=== PATIENT | female | born 1940 | race Caucasian/White ===

== ENCOUNTER 2018-01-18 20:35 | Emergency (ER) | payer SELFPAY ==
[~2018-01-18] VITALS: Ht 165.1 cm; Wt 57.2 kg
--- OUTSIDE RECORDS SUMMARY | 2018-01-18 20:37 | XMS REPORT | Clinical Summary ---
Author Author [facility] Organization [facility] Address Unknown Phone Unavailable Care Team Providers Care Quality Cloth Tester Name Role Phone Hayden Mcmillan DO PCP Allergies No Known Allergies Current Medications Prescription Sig. Disp. Refills Start End Date Status Date estradiol (ESTRACE) 0.01 Insert 2 g into the Active % (0.1 mg/gram) vaginal vagina daily. cream ibandronate (BONIVA) 150 Take 150 mg by mouth Active mg tablet every 30 (thirty) days. Take in AM with glass of water prior to food, don't lie down for 30 minutes. celecoxib (CeleBREX) 200 Take 200 mg by mouth 2 Active MG capsule (two) times a day. lisinopril Take 5 mg by mouth daily. Active (PRINIVIL,ZESTRIL) 5 mg tablet simvastatin (ZOCOR) 20 MG Take 20 mg by mouth Active tablet nightly. polyethylene glycol Take 17 g by mouth daily. Active (MIRALAX) 17 gram packet zolpidem (AMBIEN) 10 mg Take 10 mg by mouth Active tablet nightly as needed for sleep. mouthwashes 15 mL by mucous membrane 480 mL 1 01/17/20 Active solutionIndications: route 3 (three) times a 18 Burning mouth syndrome day. mouthwashes solution 15 mL by mucous membrane 480 mL 1 01/17/2007/28 Discontin route 3 (three) times a 18 18 ued day. 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 Transcribe Physical Therapy Munir Ramirez MD Arthritis of left knee Orders (Primary Dx) 09/19/2017 Hospital Radiology Lucy Gutierrez MD Breast screening Encounter 09/14/2017 Transcribe Access Lucy Gutierrez MD Breast screening (Primary Orders Dx) after 01/17/2017 Social History Tobacco Use Types Packs/Day Years Used Date Former Smoker Smokeless Tobacco: Never Chew Used Alcohol Use Drinks/Week oz/Week Comments No Sex Assigned at Date Recorded Not on file Last Filed Vital Signs Vital Sign Reading Time Taken Blood Pressure 146/73 01/16/2018 9:26 AM CDT Pulse 71 01/16/2018 9:26 AM CDT Temperature - - Respiratory Rate - - Oxygen Saturation - - Inhaled Oxygen - - Concentration Weight 57.2 kg (126 lb) 01/16/2018 9:26 AM CDT Height 165.1 cm (5' 5") 01/16/2018 9:26 AM CDT Body Mass Index 20.97 01/16/2018 9:26 AM CDT Plan of Treatment Health Maintenance Due Date Last Done Comments ZOSTER VACCINE 2001 PNEUMOCOCCAL 2006 POLYSACCHARIDE VACCINE AGE 65 AND OVER PNEUMOCOCCAL-13 2006 INFLUENZA VACCINE 05/09/2018 Results * Mammo Breast Screen Tomosynthesis Bilateral (09/19/2017 2:40 PM) [place] [address] Narrative PROCEDURE: MAMMO BREAST SCREEN TOMOSYNTHESIS BILATERAL Computer aided detection was utilized for the interpretation of the digital bilateral screening mammography with tomosynthesis. COMPARISON: 11/07/2016-07/01/2013 CLINICAL HISTORY: 77-year-old female for screening mammogram.The patient has no current breast complaints. The patient has a history of prior left breast surgical excision for intraductal papilloma. DENSITY: There are scattered areas of fibroglandular density. A scar marker overlies the right breast. There are new post surgical changes in the left breast including postsurgical architectural distortion, compatible with interval left breast surgical excision for intraductal papilloma. There are bilateral vascular calcifications. No significant masses, calcifications, or other findings are seen in either breast. IMPRESSION:No mammographic evidence of malignancy. RECOMMENDATION: Comparison with physical exam and annual screening mammography. BI-RADS 2: BENIGN This facility is accredited by the [employer] for Mammography. A negative x-ray report should not delay biopsy if a dominant or clinically suspicious mass is present.Not all cancers are identified by x-ray. [id number] after 01/17/2017 Insurance Payer Benefit Subscriber ID Type Phone Address Plan / Group [facility] xxxxxxxxx[place] [address]
[2018-01-18] MEDS ORDERED: TRIMETHOPRIM/SULFAMETHOXAZOLE 160-800 MG TAB PO ONE (21:15)
== END 2018-01-18 21:10 | disposition home or self-care (01) ==
LOC: FSED 20:35
DX: R30.0 Dysuria (principal); R31.9 Hematuria, unspecified; Z87.440 Personal history of urinary (tract) infections
CPT/HCPCS: 81003; 99282

== ENCOUNTER 2018-01-21 12:25 | Inpatient (IN) | payer OTHER ==
[~2018-01-21] VITALS: Ht 165.1 cm; Wt 57.2 kg
--- OUTSIDE RECORDS SUMMARY | 2018-01-21 12:29 | XMS REPORT | Continuity of Care Document ---
Author Author [facility] Organization [facility] Address [address] [place] [address] Phone Unavailable Care Team Providers Care Public Works Director Name Role Phone ROSSY SOLITARIO DO PCP Advance Directives No advance directive information available. Problems No problem information available. Medications No medication information available. Social History No social history information available. Hospital Discharge Instructions No hospital discharge instruction information available. Plan of Care Discharge Date 01/18/18 9:10pm Disposition HOME, SELF-CARE Condition at Discharge Stable Instructions/Education Provided Urinary Tract Infection - Women Forms Provided Work/School Excuse Prescriptions See Medication Section Additional Instructions/Education Discussed working diagnosis of urinary tract infection with patient and family. Recommend course of medical therapy with FOLLOW UP MD in 2-3 days for recheck of urinary. Proceed to hospital ER if high fever, worsening back pain, or vomiting. Precautions given. Functional Status No functional status information available. Allergies, Adverse Reactions, Alerts No known allergies. Immunizations No immunization information available. Vital Signs Acute Vital Signs Vital Response Date/Time Height 5 ft 5 in 01/18/2018 8:35pm Weight 126 lb 01/18/2018 8:35pm Body Mass Index 21.0 kg/m^2 01/18/2018 8:35pm Results No relevant diagnostic test, laboratory data and/or discharge summary information available. Procedures No procedure information available. Encounters Encounter Location Arrival/Admit Date Discharge/Depart Date Attending Provider Departed Emergency Room [facility] 01/18/18 8:35pm 9:10pm PRINCESS ALFARO MD
--- OUTSIDE RECORDS SUMMARY | 2018-01-21 12:29 | XMS REPORT | Clinical Summary ---
Author Author [facility] Organization [facility] Address Unknown Phone Unavailable Care Team Providers Care Sizing Machine Tender Name Role Phone Hayden Mcmillan DO PCP [...] MD Breast screening (Primary Orders Dx) after 01/20/2017 Social History Tobacco Use Types Packs/Day Years [...] Bilateral (09/19/2017 2:40 PM) [place] [address] Narrative PROCEDURE: MAMMO BREAST SCREEN TOMOSYNTHESIS BILATERAL [...] BENIGN This facility is accredited by the [employer] for Mammography. A negative x-ray report should not delay biopsy if a dominant or clinically suspicious mass is present.Not all cancers are identified by x-ray. [id number] after 01/20/2017 Insurance Payer Benefit Subscriber ID Type Phone Address Plan / Group [facility] [place] [address]
--- OUTSIDE RECORDS SUMMARY | 2018-01-21 12:31 | XMS REPORT | Clinical Summary ---
Author Author [facility] Organization [facility] Address Unknown Phone Unavailable Care Team Providers Care Cardiovascular Physician Assistant Name Role Phone Hayden Mcmillan DO PCP [...] Bilateral (09/19/2017 2:40 PM) Specimen [place] [address] Narrative PROCEDURE: MAMMO BREAST SCREEN TOMOSYNTHESIS BILATERAL [...] BENIGN This facility is accredited by the [employer] for Mammography. A negative x-ray report should not delay biopsy if a dominant or clinically suspicious mass is present.Not all cancers are identified by x-ray. DWS01 after 01/20/2017 Insurance Payer Benefit Subscriber ID Type Phone Address Plan / Group [facility] xxxxxxxxx[place] [address]
[2018-01-21] MEDS ORDERED: SODIUM CHLORIDE 0.9% 500ML 500 ML IV STA (12:46)
[2018-01-21] MEDS ORDERED: LORAZEPAM 1 MG TAB PO ONE (13:00)
[2018-01-21 13:24] LABS: BASOPHILS % 0.4 % (0.0-1.0); EOSINOPHILS % 0.1 % (0.0-6.0); HEMATOCRIT 38.3 % (34.2-44.1); HEMOGLOBIN 13.1 g/dL (12.0-16.0); LYMPHOCYTES # (AUTO) 1.1 (1.0-3.2); LYMPHOCYTES % 13.9 % (18.0-39.1); MEAN CORPUSCULAR HEMOGLOBIN 30.7 pg (28-32); MEAN CORPUSCULAR HGB CONC 34.2 g/dL (31-35); MEAN CORPUSCULAR VOLUME 89.7 fL (81-99); MONOCYTES # (AUTO) 0.3 (0.2-0.8); MONOCYTES % 4.1 % (4.4-11.3); NEUTROPHILS # (AUTO) 6.3 (2.1-6.9); NEUTROPHILS % 81.2 % (38.7-80.0); PLATELET COUNT 312 x10e3/uL (140-360); RED BLOOD COUNT 4.27 x10e6/uL (3.6-5.1); RED CELL DISTRIBUTION WIDTH 13.3 % (11.7-14.4)
[2018-01-21 13:26] LABS: CLARITY,URINE CLEAR (CLEAR); COLOR,URINE YELLOW (YELLOW); KETONES,URINE NEGATIVE (NEGATIVE); LEUKOCYTE ESTERASE ,URINE NEGATIVE (NEGATIVE); NITRITE,URINE NEGATIVE (NEGATIVE); PROTEIN,URINE DIPSTICK NEGATIVE (NEGATIVE)
[2018-01-21 13:27] LABS: BILIRUBIN,URINE NEGATIVE (NEGATIVE); INR 1.15; PROTHROMBIN TIME 13.8 seconds (11.9-14.5); URINE UROBILINOGEN 1 mg/dL (0.2 - 1)
--- NOTE | 2018-01-21 13:27 | Diagnostic Imaging Report ---
EXAM: XR CHEST 1 VIEW DATE: 01/21/2018 12:51 PM INDICATION: Anxiety COMPARISON: None FINDINGS: Lines and Tubes: None Heart and Mediastinum: No acute findings. Lungs and Pleura: Ill-defined density right lung base has the appearance of rib ending. Bones and Soft Tissues: No acute findings. IMPRESSION: 1. No acute cardiopulmonary findings. Signed by: Dr. Roni Sousa MD on 01/21/2018 1:24 PM
[2018-01-21 13:28] LABS: PARTIAL THROMBOPLASTIN TIME 29.5 seconds (23.8-35.5)
[2018-01-21 13:34] LABS: EPITHELIAL CELLS,URINE MANY /LPF; RBC,URINE 0-5 /HPF (0-5); WBC,URINE (MAN) 0-5 /HPF (0-5)
[2018-01-21 13:36] LABS: ANION GAP 13.7 mmol/L (8-16); BLOOD UREA NITROGEN 11 mg/dL (7-26); BUN/CREATININE RATIO 11 (6-25); CALCIUM 9.5 mg/dL (8.4-10.2); CARBON DIOXIDE 22 mmol/L (22-29); CHLORIDE 100 mmol/L (98-107); CREATINE KINASE 91 IU/L (29-168); CREATININE, SERUM 0.99 mg/dL (0.57-1.11); EST GLOMERULAR FILTRATION RATE 55 ML/MIN (60-); GLUCOSE 175 mg/dL (74-118); POTASSIUM 3.7 mmol/L (3.5-5.1); SODIUM 132 mmol/L (136-145)
[2018-01-21] MEDS ORDERED: SODIUM CHLORIDE 0.9% 50ML 50 ML ONE (13:56)
[2018-01-21] MEDS ORDERED: IOPAMIDOL 370 MG/ML 200 ML INFUS..BTL INJ ONE (13:57)
--- NOTE | 2018-01-21 14:21 | Diagnostic Imaging Report ---
EXAM: CTA Chest WITH contrast / Pulmonary Embolus Study INDICATION: Shortness of breath COMPARISON: None. TECHNIQUE: Angiogram of the chest was obtained using a multidetector helical scanner after administration of IV contrast. Coronal and sagittal reformations were obtained. Reformatted axial MIP images were obtained and reviewed. Pulmonary embolus protocol. IV CONTRAST: 100 mL Isovue-370 COMPLICATIONS: None RADIATION DOSE: Total DLP: 390 mGy*cm Estimated effective dose: (DLP x 0.015 x size factor) mSv CTDIvol has been reviewed. It is below the limits set by the Radiation Protocol Committee (RPC). FINDINGS: Lines and Tubes: None. Lower Neck: Poorly evaluated thyroid hypodensities. Heart and Great Vessels: The aorta and main pulmonary artery measure 37 and 28 mm. respectively. No pericardial effusion. No pulmonary embolus. Lymph Nodes: No suspicious adenopathy. Lungs: There is a 36 x 27 x 42 mm cystic lesion in the medial aspect of the right lower lobe with 26 x 18 mm enhancing mural nodularity inferiorly. Moderate emphysematous changes are present. Superimposed basilar atelectasis. Trachea and central bronchi are unremarkable. Upper abdomen: Limited evaluation. Bones and Soft Tissues: No acute findings. IMPRESSION: 1. No pulmonary embolus. 2. 36 x 27 x 42 mm cystic lesion medial right lower lobe with 26 x 18 mm enhancing mural nodule. 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 3. Moderate emphysematous change. 4. Ectasia ascending aorta. 5. Thyroid hypodensities which could be better evaluated with ultrasound. Signed by: Dr. Roni Sousa MD on 01/21/2018 2:17 PM
[2018-01-21] MEDS ORDERED: SODIUM CHLORIDE 0.9% 250ML 250 ML IV STA (15:23)
[2018-01-21] MEDS ORDERED: ONDANSETRON HCL INJ 2 MG/ML VIAL IV PRN ×2 (15:30→20:45)
[2018-01-21] MEDS ORDERED: MORPHINE SULFATE 2 MG/ML SYR IV PRN (15:30)
[2018-01-21] MEDS ORDERED: LORAZEPAM 1 MG TAB PO PRN (15:30)
[2018-01-21] MEDS ORDERED: SODIUM CHLORIDE FLUSH 10 ML SYR INJ PRN (15:30)
--- OUTSIDE RECORDS SUMMARY | 2018-01-21 16:25 | XMS REPORT | Clinical Summary ---
Author Author [facility] Organization [facility] Address Unknown Phone Unavailable Care Team Providers Care Injection Operator Name Role Phone Hayden Mcmillan DO PCP [...] Bilateral (09/19/2017 2:40 PM) Specimen [place] [address] Narrative PROCEDURE: MAMMO BREAST SCREEN TOMOSYNTHESIS BILATERAL [...] BENIGN This facility is accredited by the [employer] for Mammography. A negative x-ray report should not delay biopsy if a dominant or clinically suspicious mass is present.Not all cancers are identified by x-ray. DWS01 after 01/20/2017 Insurance Payer Benefit Subscriber ID Type Phone Address Plan / Group [facility] [place]xxxxxxxx[place] [address]
--- OUTSIDE RECORDS SUMMARY | 2018-01-21 16:25 | XMS REPORT ---
Author Author [facility] Address Unknown Phone Unavailable Care Team Providers Care Moth Proofer Name Role Phone RAYA BELLA Unavailable Unavailable Problems This patient has no known problems. Allergies, Adverse Reactions, Alerts This patient has no known allergies or adverse reactions. Medications This patient has no known medications. Results Test Description Test Time Test Comments Text Results Atomic Results Result Comments CT CHEST W [address] [address] Patient Name: REGLA MEDEIROS MR #: [id number] : 1940 Age/Sex: 77/F Req #: [id number] Adm Physician: Ordered by: RAYA BELLA MD Report # : [id number] Location: ER Room/Bed: Procedure: [id number] CT/CT CHEST W Exam Date: 01/21/18 Exam Time: 1400 REPORT STATUS: Signed EXAM: CTA Chest WITH contrast / Pulmonary Embolus Study INDICATION: Shortness of breath COMPARISON: None. TECHNIQUE: Angiogram of the chest was obtained using a multidetector helical scanner after administration of IV contrast. Coronal and sagittal reformations were obtained. Reformatted axial MIP images were obtained and reviewed. Pulmonary embolus protocol. IV CONTRAST: 100 mL Isovue- 370 COMPLICATIONS: None RADIATION DOSE: Total DLP: 390 mGy*cm Estimated effective dose: (DLP x 0.015 x size factor) mSv CTDIvol has been reviewed. It is below the limits set by the Radiation Protocol Committee (RPC). FINDINGS: Lines and Tubes: None. Lower Neck: Poorly evaluated thyroid hypodensities. Heart and Great Vessels: The aorta and main pulmonary artery measure 37 and 28 mm. respectively. No pericardial effusion. No pulmonary embolus. Lymph Nodes : No suspicious adenopathy. Lungs: There is a 36 x 27 x 42 mm cystic lesion in the medial aspect of the right lower lobe with 26 x 18 mm enhancing mural nodularity inferiorly. Moderate emphysematous changes are present. Superimposed basilar atelectasis. Trachea and central bronchi are unremarkable. Upper abdomen: Limited evaluation. Bones and Soft Tissues: No acute findings. IMPRESSION: 1. No pulmonary embolus. 2. 36 x 27 x 42 mm cystic lesion medial right lower lobe with 26 x 18 mm enhancing mural nodule. 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 3. Moderate emphysematous change. 4. Ectasia ascending aorta. 5. Thyroid hypodensities which could be better evaluated with ultrasound. Signed by: Dr. Roni Cuellar MD on 01/21/2018 2:17 PM Dictated By: RONI CUELLAR MD [id number] Transcribed By: ANDRES on 01/21/18 1417 COPY TO: RAYA BELLA MD CHEST [facility] [place] [address] Patient Name: REGLA MEDEIROS MR #: [id number] : 1940 Age/Sex: 77/F Req #: [id number] Adm Physician: Ordered by: RAYA BELLA MD Report #: [id number] Location: ER Room/Bed: Procedure: [id number] DX/CHEST SINGLE (PORTABLE) Exam Date: 01/21/18 Exam Time: 1300 REPORT STATUS: Signed EXAM: XR CHEST 1 VIEW DATE: 01/21/2018 12:51 PM INDICATION: Anxiety COMPARISON: None FINDINGS: Lines and Tubes: None Heart and Mediastinum: No acute findings. Lungs and Pleura: Ill-defined density right lung base has the appearance of rib ending. Bones and Soft Tissues: No acute findings. IMPRESSION: 1. No acute cardiopulmonary findings. Signed by: Dr. Roni Cuellar MD on 01/21/2018 1:24 PM Dictated By: RONI CUELLAR MD 1324 Transcribed By: ANDRES on 01/21/18 1324 COPY TO: RAYA BELLA MD
[2018-01-21] MEDS ORDERED: SIMVASTATIN20 MG PO (16:56)
[2018-01-21] MEDS ORDERED: ESTRACE42.5 GM TOP (16:56)
[2018-01-21] MEDS ORDERED: POLYETHYLENE GL17 GM PO (16:56)
[2018-01-21] MEDS ORDERED: ZOLPIDEM TARTRA10 MG PO (16:56)
[2018-01-21] MEDS ORDERED: LISINOPRIL5 MG PO (16:56)
[2018-01-21] MEDS ORDERED: CELEBREX100 MG PO (17:04)
[2018-01-21] MEDS ORDERED: ALENDRONATE SOD70 MG PO (17:04)
[2018-01-21 20:00] VITALS: BP 140/64
[2018-01-21] MEDS ORDERED: ACETAMINOPHEN 325 MG TAB PO PRN (20:45)
[2018-01-21] MEDS ORDERED: HYDRALAZINE HCL 20 MG/ML VIAL IV PRN (20:45)
[2018-01-21] MEDS ORDERED: ALBUTEROL/IPRATROPIUM 3 ML NEB NEB PRN (20:45)
[2018-01-21] MEDS ORDERED: ZOLPIDEM TARTRATE 10 MG TAB PO SCH (21:00)
[2018-01-21] MEDS: SIMVASTATIN 20 MG TAB PO SCH (21:28)
[2018-01-21] MEDS ORDERED: CELECOXIB 100 MG CAP PO ONE (21:45)
[2018-01-22] VITALS (9 sets, daily range): BP systolic 113–139; BP diastolic 56–63
[2018-01-22] MEDS ORDERED: LEVAQUIN500 MG PO (01:41)
--- NOTE | 2018-01-22 03:08 | Consultation ---
DATE OF CONSULTATION: January 21, 2018 PULMONARY MEDICINE CONSULT REFERRING PHYSICIAN: Dr. Corral REASON FOR REFERRAL: Lung mass. HISTORY: Ms. Martinez is a pleasant 77-year-old female with abnormal chest radiography. Patient has had weight loss of 15 pounds over last few months. Her appetite has decreased. She denies hemoptysis. She is having more anxiety over last 2 weeks. She decided to come into the hospital. She had recent treatment for possible UTI. In the hospital, chest x-ray is unremarkable. CT angiography demonstrated 36 x 27 x 42 mm cystic lesion in the lung with adjacent 26 x 18 mm nodular component with contrast enhancement on angiography. At this point, patient is admitted for further treatment. No history of asthma. MILD ALLERGIES. No GERD. No known COPD. Patient is still active with all her ADLs. She still goes to the gymnasium every week. PAST MEDICAL HISTORY: MILD ALLERGIES, mild arthritis, hyperlipidemia, UTIs. MEDICATIONS: Medication list reviewed per electronic record. No breathing medications. ALLERGIES: NO KNOWN DRUG ALLERGIES. SOCIAL HISTORY: No alcohol, no drugs significant. Patient smoked from age 11 to 52, 1.5 packs per day. 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 She grew up her first 17 years in [facility] where they had coal burning stoves. Patient at age 18 and [place], [place], [place], [facility] and has been in [place] since 1995. She has 3 children in the [place] area. FAMILY HISTORY: Noncontributory. REVIEW OF SYSTEMS: GENERAL: No weight changes. OPHTHALMOLOGIC: No icterus. ENT: No dry mouth. LUNGS: No known COPD. CARDIAC: No heart attacks. GI: No constipation. : No blood in urine. NEUROLOGIC: No seizures. DERMATOLOGIC: No rashes. HEMATOLOGIC: No known lupus. OBJECTIVE: VITAL SIGNS: Afebrile, vital signs noted per electronic record. GENERAL: In no acute distress, alert and calm. HEENT: Normocephalic, atraumatic. NECK: Supple. Throat midline. LUNGS: Bilateral air entry, clear. CARDIOVASCULAR: S1, S2. No murmurs, rubs, or gallops. ABDOMEN: Soft, nontender. EXTREMITIES: No clubbing, no cyanosis, there is no edema. INTEGUMENT: No rash, no purpura. LYMPH NODES: No cervical, no supraclavicular lymph nodes. LABS: 136 sodium, 3.7 potassium, BUN 11, creatinine 0.99. White count 8, 38 hematocrit, 312,000 platelets. IMPRESSION AND PLAN: 1. Lung nodule with adjacent cystic lesion, contrast enhancing. Moderate probability of tumor. 2. Former smoker, quit 25 years ago. 3. MILD ALLERGIES. 4. Recent anxiety. 5. Recent weight loss. 6. Hyperlipidemia. 7. Recurrent urinary tract infections. 8. Treat for possible pneumonia. Recommend antibiotics for possibility of infection. Afterwards, patient needs a positron emission tomography scan and perfusion scan. Patient needs pulmonary function tests. If she seems like a great candidate, she should be worked up to go for surgery as she is still strong and fit at this time. Surgical options include classic lobectomy versus sublobar resection. It was recommended as a less favorable approach to do biopsy or just repeat computerized tomography imaging in the future, all of these were viable options that some people do choose. Continue to optimize weight as much as possible and appetite encouragement. Thank you very much, Dr. Corral for allowing me the chance to participate in the care of Ms. Martinez. Do not hesitate to contact me if I can help in any way. Job#: [id number]
[2018-01-22 06:59] LABS: BASOPHILS # (AUTO) 0.1 (0.0-0.1); BASOPHILS % 1.1 % (0.0-1.0); EOSINOPHILS # (AUTO) 0.1 (0.0-0.4); EOSINOPHILS % 1.9 % (0.0-6.0); HEMATOCRIT 39.7 % (34.2-44.1); HEMOGLOBIN 13.1 g/dL (12.0-16.0); LYMPHOCYTES # (AUTO) 1.6 (1.0-3.2); LYMPHOCYTES % 28.8 % (18.0-39.1); MEAN CORPUSCULAR HEMOGLOBIN 30.3 pg (28-32); MEAN CORPUSCULAR VOLUME 91.7 fL (81-99); MONOCYTES # (AUTO) 0.6 (0.2-0.8); MONOCYTES % 9.7 % (4.4-11.3); NEUTROPHILS # (AUTO) 3.3 (2.1-6.9); NEUTROPHILS % 58.1 % (38.7-80.0); PLATELET COUNT 314 x10e3/uL (140-360); RED BLOOD COUNT 4.33 x10e6/uL (3.6-5.1); RED CELL DISTRIBUTION WIDTH 13.5 % (11.7-14.4)
[2018-01-22 07:23] LABS: ANION GAP 11.3 mmol/L (8-16); CALCIUM 9.6 mg/dL (8.4-10.2); CREATININE, SERUM 0.91 mg/dL (0.57-1.11); POTASSIUM 4.3 mmol/L (3.5-5.1)
[2018-01-22] MEDS: LISINOPRIL 10 MG TAB PO SCH (08:11)
[2018-01-22] MEDS ORDERED: CELECOXIB 100 MG CAP PO SCH (09:00)
[2018-01-22] MEDS: FAMOTIDINE 20 MG TAB PO SCH ×2 (09:45→16:57)
[2018-01-22] MEDS: ENOXAPARIN SOD INJ 40 MG/0.4 ML SYR SC SCH (12:21)
[2018-01-22] MEDS ORDERED: LORAZEPAM 1 MG TAB PO PRN ×2 (12:30→16:30)
[2018-01-22] MEDS ORDERED: ZOLPIDEM TARTRATE 10 MG TAB PO PRN (12:45)
--- NOTE | 2018-01-22 13:25 | Progress Note ---
DATE: January 22, 2018 PULMONARY PROGRESS NOTE SUBJECTIVE: Ms. Martinez was seen and examined at bedside. She continues to have slow progress. Remaining with some anxiety, she has a lot of questions regarding her condition. I have discussed with her and even discussed with a person that she calls a friend about condition. The primary doctor decided to call in psychiatry and oncology. REVIEW OF SYSTEMS: No headaches, no rash. OBJECTIVE VITALS: Afebrile, vital signs noted per the chart record. GENERAL: No acute distress, alert and calm. HEENT: Normocephalic, atraumatic. NECK: Supple. Throat midline. LUNGS: Bilateral air entry, a few rare rhonchi, mostly clear. CARDIOVASCULAR: S1, S2. No murmurs, rubs, or gallops. ABDOMEN: Soft, nontender. EXTREMITIES: No clubbing, no cyanosis. There is no edema. INTEGUMENT: No rash, no purpura. IMPRESSION AND PLAN 1. Lung mass, moderate to high suspicion of malignancy. 2. Former smoker, quit 25 years ago. 3. Anxiety. 4. Hyponatremia. At this time we will continue to followup. I offered my recommendations to the patient and to staff. Due to anxiety, psychiatry has been called. As patient is very fit, I continue to encourage expedited outpatient workup to lung cancer resective surgery. The patient is requesting a lot of information and has the right to get the information. However, due to the fact that this is lung cancer workup, there are not really patient-level handouts out there because it is hard to describe in a pleasant way what the patient is expected to get. However, I did leave literature with nursing and asked them to see if the patient really does want that and I provided this medical-grade literature although I feel it is a little bit complex. However, I will notify nursing they can give it to the patient if she insists on getting it as it is her right to get the information. I notified the patient I will discuss how to get her expedited to shortest time to get this surgery done. Job#: [id number] BRENDA
--- NOTE | 2018-01-22 17:21 | Consultation ---
DATE OF CONSULTATION: January 22, 2018 ATTENDING DOCTOR: Dr. Corral. Thank you Dr. Corral for this consultation. She is a very pleasant 77-year-old female with a past medical history which includes generalized anxiety, mild arthritis, hyperlipidemia, UTI currently in hospital with worsening chest pain, weight loss, fatigue and tiredness. Her initial workup showed 3 x 6 x 2.27 x 4.2 cm cystic lung mass. She is currently in hospital for further management. She feels fatigued, tired, and lethargic. She already follows with stereoplotter operator. She denies any other symptoms. PAST MEDICAL HISTORY: Generalized anxiety, arthritis, hyperlipidemia. ALLERGIES: NKDA. MEDICATIONS: List reviewed. SOCIAL HISTORY: The patient currently lives with family. She smoked from age 11 to 51 with 1.5 pack per day. No alcohol or drugs. FAMILY HISTORY: Reviewed and noncontributory. REVIEW OF SYSTEMS: A 14-point review is as per HPI includes weight loss, shortness of breath, chest pain, anxiety. PHYSICAL EXAMINATION GENERAL: Alert, awake, communicative. HEENT: Normocephalic, atraumatic. Sclerae pink. Conjunctivae clear. NECK: Supple. CHEST: Decreased breath sounds. CARDIOVASCULAR: Regular rate and rhythm. ABDOMEN: Soft, nontender. EXTREMITIES: No clubbing, cyanosis, or edema. LIEUTENANT GOVERNOR: Grossly intact. LABS AND IMAGING: Reviewed. ASSESSMENT AND PLAN: Patient with history of smoking, currently in hospital with chest pain, shortness of breath. Workup showed right lower lobe lung mass cystic and appears likely malignant mass. Patient is currently followed by stereoplotter operator. Reviewed the stereoplotter operator's notes and recommendations, not to do any biopsy at this point and consider PET scan before any biopsy and with a positive PET scan consider direct surgical resection. Agree with this idea especially considering the patient's anxiety nature. Will continue antibiotic. Will follow patient as an outpatient for the PET scan. We arranged the PET scan. Further recommendation after the PET scan. Patient and family were discussed in detail, talked about the current condition and prognosis and alternative diagnosis. They understand the plan of care. At this point we will continue remaining care. Will monitor patient closely. Patient also has generalized anxiety disorder, following psych. Supposed to start Remeron. Job#: [id number] BRENDA
--- NOTE | 2018-01-22 19:22 | Consultation ---
DATE OF CONSULTATION: January 22, [address] Ely Light also saw the patient. REASON FOR CONSULTATION: To evaluate the patient's anxiety and depression. HISTORY OF PRESENT ILLNESS: The patient is a 77-year-old female admitted to the hospital for dyspnea and lung mass and anxiety. Psychiatric consultation is called to evaluate the patient's mood. As per medical record, the patient has a history of hyperlipidemia, UTI, mild arthritis. She has 15 pounds of weight loss over the past few months. Her appetite has been decreased. Chest x-ray was unremarkable, but the CT showed a cystic lesion in the lung. On evaluation today, the patient was found to be in the room with her friend. She allowed us to discuss the matter in the presence of her friend. The patient is alert, awake, and oriented to situation. She admits to feeling increasingly anxious lately and also concerning stress due to the recent of her friend. She denies any suicidal ideation or hallucinations. She admits to poor sleep and poor appetite since September. She is not combative or agitated. She does not elicit paranoid or delusional thinking. PAST PSYCHIATRIC HISTORY: Patient denies past psychiatric history. She denies past suicide attempt. She denies alcohol and drug use. FAMILY HISTORY: The patient states her daughter has some psychiatric issues. SOCIAL HISTORY: The patient lives alone. MENTAL STATUS EXAMINATION: The patient is an elderly, female, thin built. She is alert, awake and oriented to situation. Her mood is anxious and stressed. Affect is blunt. She denies any suicidal or homicidal ideation. She denies any hallucinations. Thought process is concrete. She does not elicit paranoid or delusional thinking. Insight and judgment are fair. Memory appears to be grossly intact. CURRENT MEDICATIONS 1. Enoxaparin. 2. Famotidine. 3. Lisinopril. 4. Zocor. 5. Ambien p.r.n. 6. Ativan p.r.n. 7. . 8. Polyethylene glycol. 9. Hydralazine. 10. Ondansetron. 11. Acetaminophen. 12. Albuterol. 13. Sodium chloride. 14. Morphine sulfate. CURRENT LABS: WBC 5.65, RBC 4.33, hemoglobin 13.3, hematocrit 39.7, platelets 314. Sodium 135, potassium 4.3, chloride 103, CO2 25, BUN 10, creatinine 0.91. ASSESSMENT 1. Adjustment disorder. 2. Mixed mood. 3. Depression and anxiety. PLAN 1. Reduce Ativan from 1 mg p.o. q.6 h. p.r.n. to 0.5 mg p.o. q.6 h. p.r.n. 2. Continue Ambien p.r.n. 3. Add Remeron 15 mg p.o. nightly. 4. Supportive therapy. Thank you for this consultation. We will continue to follow the patient with you during her hospitalization. Dictated by: ОЛЕГ Oneill Job#: [id number]
[2018-01-22] MEDS ORDERED: POLYETHYLENE GLYCOL 3350 17 GM PACK PO SCH (21:00)
[2018-01-22] MEDS ORDERED: MIRTAZAPINE 15 MG TAB PO SCH (21:00)
[2018-01-22] MEDS: SIMVASTATIN 20 MG TAB PO SCH (21:41)
[2018-01-23] VITALS: BP 152/69
[2018-01-23 04:00] VITALS: BP_SYST 146; BP_SYST 152; BP_DIAS 65; BP_DIAS 69
[2018-01-23 06:50] LABS: BASOPHILS # (AUTO) 0.1 (0.0-0.1); BASOPHILS % 1.3 % (0.0-1.0); EOSINOPHILS # (AUTO) 0.3 (0.0-0.4); EOSINOPHILS % 4.7 % (0.0-6.0); HEMATOCRIT 41.3 % (34.2-44.1); HEMOGLOBIN 13.6 g/dL (12.0-16.0); LYMPHOCYTES # (AUTO) 2.1 (1.0-3.2); LYMPHOCYTES % 32.7 % (18.0-39.1); MEAN CORPUSCULAR HEMOGLOBIN 30.6 pg (28-32); MEAN CORPUSCULAR HGB CONC 32.9 g/dL (31-35); MEAN CORPUSCULAR VOLUME 92.8 fL (81-99); MONOCYTES # (AUTO) 0.8 (0.2-0.8); MONOCYTES % 11.9 % (4.4-11.3); NEUTROPHILS # (AUTO) 3.1 (2.1-6.9); NEUTROPHILS % 49.1 % (38.7-80.0); PLATELET COUNT 328 x10e3/uL (140-360); RED BLOOD COUNT 4.45 x10e6/uL (3.6-5.1); RED CELL DISTRIBUTION WIDTH 13.6 % (11.7-14.4)
[2018-01-23 07:21] LABS: ANION GAP 11.7 mmol/L (8-16); CALCIUM 9.8 mg/dL (8.4-10.2); CREATININE, SERUM 1.03 mg/dL (0.57-1.11); MAGNESIUM 2.1 MG/DL (1.3-2.1); POTASSIUM 4.7 mmol/L (3.5-5.1)
[2018-01-23 07:30] VITALS: BP 146/65
[2018-01-23 07:55] VITALS: BP 132/62
[2018-01-23] MEDS: FAMOTIDINE 20 MG TAB PO SCH (08:03)
[2018-01-23] MEDS: ENOXAPARIN SOD INJ 40 MG/0.4 ML SYR SC SCH (08:03)
[2018-01-23] MEDS: LISINOPRIL 10 MG TAB PO SCH (08:06)
[2018-01-23] MEDS ORDERED: CELECOXIB 200 MG CAP PO SCH (09:00)
--- NOTE | 2018-01-23 09:08 | Progress Note ---
DATE: January 23, 2018 The patient was seen and examined today. She appears comfortable. Clinical condition is improving. Not . No fever or chills. PHYSICAL EXAMINATION GENERAL: Alert, awake and communicative. HEENT: Normocephalic and atraumatic. Sclerae pink. Conjunctivae clear. NECK: Supple. CHEST: Clear to auscultation. CARDIOVASCULAR: Regular rate and rhythm. EXTREMITIES: No edema. LABS AND IMAGING: Reviewed. ASSESSMENT AND PLAN: The patient has a history of chronic obstructive pulmonary disease, smoking, generalized anxiety disorder admitted with chest pain and shortness of breath. Workup so far showed and no infiltrate. She is currently on antibiotics. Her lung mass is almost 4 x 3 x 2 cm. Recommendation to continue antibiotics. PET CT as an outpatient. Then we can decided either we go for a tissue biopsy or directly get surgeon for possible resection or lobectomy. Patient and family were discussed in detail that this was the plan of care. She will be followed as an outpatient for further management. Job#: [id number] HANNAH
[2018-01-23 12:24] VITALS: BP 137/63
[2018-01-23] MEDS ORDERED: ATIVAN1 MG PO (14:42)
[2018-01-23] MEDS ORDERED: Celecoxib PO (14:42)
[2018-01-23] MEDS ORDERED: MIRTAZAPINE15 MG PO (14:42)
--- NOTE | 2018-01-23 15:21 | Discharge Summary ---
PERTINENT HISTORY AND PHYSICAL FINDINGS: Mrs. Martinez is a 77-year-old female admitted on January 21, 2018, presenting with shortness of breath, dyspnea on exertion, anxiety and shakiness which was worsening over the previous 2 weeks. She had a series of stressful events happen such as left knee surgery, bumps on the tongue being concerned about cancer, and a friend's . She denied cough, fever, orthopnea or suicidal ideation. Symptoms worsened when she was alone. PAST MEDICAL HISTORY: Significant for UTI, hypertension, hyperlipidemia. FAMILY HISTORY: Patient's father had tongue cancer. Sister had diabetes. SOCIAL HISTORY: The patient smoked 25 years ago. She has had a weight loss of 18 pounds since September, lately has been anxious and had insomnia. ADMITTING DIAGNOSES: Included 1. Anxiety. 2. Right lower lobe lesion. 3. Hypertension. 4. Hyperlipidemia. 5. Insomnia. 6. Hyponatremia. DISCHARGE DIAGNOSES: 1. Right lower lobe lung mass, approximately 4 x 3 x 2 cm, possible carcinoma. 2. Chronic obstructive pulmonary disease. 3. Nicotine abuse, cigarettes, uncomplicated, former smoker that quit 25 years ago. 4. Anxiety/adjustment disorder/depression. 5. Hypertension. 6. Hyperlipidemia. 7. Insomnia. 8. Hyponatremia. CONSULTING PHYSICIANS: Include 1. Dr. Marco A Cooper with oncology. 2. Dr. Light with psychiatry. 3. Dr. Teixeira with pulmonology. Per Dr. Teixeira's note, a lung nodule with adjacent cystic lesion, contrast-enhancing with moderate probability of tumor. Antibiotics recommended for possibility of infection. Afterwards the patient needs a positron emission tomography scan and perfusion scan as well as pulmonary function tests. Patient is still strong and fit at this time and is a good candidate for surgery. Surgical options include classic lobectomy versus sublobar resection. Recommended as a less favorable approach to do biopsy or just repeat CT imaging. Per Dr. Cooper with oncology, the workup showed right lower lobe lung mass, cystic, and appears likely malignant mass. Dr. Cooper agreed with Dr. Teixeira that a PET scan should be done before any biopsy and, with a positive PET scan, consider direct surgical resection. Per Dr. Light with psychiatry, diagnoses included adjustment disorder, mixed mood and depression with anxiety. Ativan was reduced from 1 mg p.o. q.6 h. p.r.n. to 0.5 mg p.o. q.6 h. p.r.n. Ambien continued as needed. Remeron was added 15 mg p.o. nightly. Vital signs from today included temperature 97.4, heart rate 66, respirations 18, blood pressure 137/63. Laboratory data on admission: WBC 7.77, hemoglobin 13.1, hematocrit 38.3, platelets 312. PT 13.8, INR 1.15, PTT 29.5. Sodium 132, potassium 3.7, chloride 100, CO2 22, anion gap 13.7, BUN 11, creatinine 0.99, GFR 55, glucose 175, calcium 9.5. Creatine kinase 91, CK-MB 2.0, troponin I less than 0.001. B-type natriuretic peptide on January 22 was 54.2. Magnesium 2.1. Sodium 135. Today, on the day of discharge, sodium 139, potassium 4.2, chloride 104, CO2 28, BUN 15, creatinine 1.03, GFR 52, glucose 88, calcium 9.8, magnesium 2.1. Chest CT on January 21 had shown no pulmonary embolus, a 36 x 27 x 42 mm cystic lesion medial right lower lobe with 26 x 18 mm enhancing mural nodule. 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 Moderate emphysematous change. Ectasia ascending aorta. Thyroid hypodensities which could be better evaluated with ultrasound. The patient will be discharged on Levaquin 500 mg p.o. daily for 8 days. Will continue most of the current inpatient medications upon discharge. The patient will be released today on cardiac diet, activity level as tolerated. Patient to follow up with her PCP, Dr. Hayden Mcmillan, in 1 to 2 weeks, follow up with Dr. Cooper for a PET scan, follow up with Pulmonology and Psychiatry as directed. Dictated by: Tae Fournier NP GABY JIM MD Job#: [id number] EV
--- NOTE | 2018-01-23 15:51 | Progress Note ---
DATE: January 23, 2018 PSYCHIATRIC PROGRESS NOTE Patient evaluated and events noted. Patient is in her room. She states that she is feeling better. She is less depressed and less anxious. She denies any suicidal ideation. She denies any hallucination. She reports sleeping better last night. She is requesting scripts to be sent home. She denies any side effects to the medications. ASSESSMENT: Adjustment disorder, mixed mood, depression/anxiety. PLAN 1. Continue Ativan p.r.n. 2. Continue Ambien p.r.n. 3. Continue with Remeron 15 mg p.o. nightly. 4. Scripts provided, given to the nursing staff. 5. Recommend patient to follow with outpatient psychiatry. 6. Supportive therapy. Dictated by: ОЛЕГ Oneill Job#: [id number] EV
[2018-01-23 16:19] VITALS: BP 128/60
== END 2018-01-23 15:26 | disposition home or self-care (01) | DRG 180 ==
LOC: ER 12:28 → ERHOLD 16:23 → MED/SURG 17:23
PROVIDERS: ADMIT Internal Medicine; ATTEND Internal Medicine
DX: C34.31 Malignant neoplasm of lower lobe, right bronchus or lung (principal); J18.9 Pneumonia, unspecified organism; N39.0 Urinary tract infection, site not specified; E87.1 Hypo-osmolality and hyponatremia; J44.9 Chronic obstructive pulmonary disease, unspecified; I10 Essential (primary) hypertension; E78.5 Hyperlipidemia, unspecified; G47.00 Insomnia, unspecified; Z87.891 Personal history of nicotine dependence; F43.23 Adjustment disorder with mixed anxiety and depressed mood; Z87.440 Personal history of urinary (tract) infections; Z80.8 Family history of malignant neoplasm of other organs or systems
CPT/HCPCS: 36415; 71045; 71260; 80048; 81001; 82550; 82553; 83735; 83880; 84484; 85025; 85379; 85610; 85730; 99284; J1650; J7040; Q9967